=== PATIENT | female | born 1960 | race Caucasian/White ===

== ENCOUNTER 2020-02-08 15:57 | Emergency (ER) | payer OTHER ==
--- NOTE | 2020-02-08 16:03 | EDM.PDOC ---
ED HPI GENERAL MEDICAL PROBLEM - General Stated Complaint: NOT ABLE TO TO HAVE A BM Time Seen by Provider: 02/08/20 16:03 Source of Information: Reports: Patient History Limitations: Reports: No Limitations - History of Present Illness INITIAL COMMENTS - FREE TEXT/NARRATIVE: 59-year-old female with onset of left mid back, flank and left-sided abdominal pain at approximately midnight this morning, 02/08/2020. This was associated with vomiting/dry heaving. The pain has progressively worsened with time and she reports that it is a sharp and shooting pain to radiate from her back and into her left lower abdomen. She felt that she might be constipated and took Ex- Lax last night but had no results from that and then at 11:30 AM today did a saline enema with little results from that and no relief of her pain. In fact, she reports that her pain has worsened since then. She has had no fevers or chills. She has some dysuria and 4 days ago had urgency, frequency and dysuria and called her doctor to get a prescription of Macrobid ordered. She has been taking the Macrobid and she still has some feelings of dysuria now. No hematuria. She reports that she has had little oral intake and her urine output has been decreased. The pain is rated by her as an 8-9/10. It is better if she is at rest and much worse with walking and movement and palpation of the area. She has had no cough. No chest pain. No sore throat or nasal congestion. There are no other associated signs or symptoms. There are no other modifying factors. Onset: Today (Midnight on 02/08/2020.) Duration: Getting Worse Location: Reports: Abdomen, Back Quality: Reports: Sharp (And shooting) Severity: Severe Improves with: Reports: Rest Worsens with: Reports: Other (Palpation. Walking.), Movement Context: Reports: Other (As above) Associated Symptoms: Reports: No Other Symptoms (Except as above) Treatments BEAMER HAND: Reports: Other Medication(s) (As above) left abdomen Pain Score (Numeric/FACES): 8 - Related Data Allergies Allergy/AdvReac Type Severity Reaction Status Date / Time seasonal Allergy Rash Uncoded 02/08/20 16:17 Home Meds: Home Meds Estrogens, Conjugated [Premarin] 1.25 mg PO DAILY 02/08/20 [History] Fluticasone/Salmeterol [Advair 250-50 Diskus] 1 puff INH BID 02/08/20 [History] Gabapentin [Neurontin] 300 cap PO TID 02/08/20 [History] Nitrofurantoin [place]/Macrocryst [Nitrofurantoin [place]-MCR] 100 mg PO BID 02/08/20 [History] gemfibroziL [Gemfibrozil] 600 mg PO BID 02/08/20 [History] Past Medical History Cardiovascular History: Reports: Hypertension Respiratory History: Reports: Other (See Below) (History of ARDS status post pneumonia with prolonged hospitalization in the past) Neurological History: Reports: Neuropathy, Peripheral (With chronic pain and she is on medical marijuana for this.), Other (See Below) (Restless leg syndrome ) - Past Surgical History GI Surgical History: Reports: Cholecystectomy Female Surgical History: Reports: Section, Hysterectomy Musculoskeletal Surgical History: Reports: Knee Replacement (Right knee), Other (See Below) (Right knee ACL repair prior to the right knee replacement.) Social & Family History - Tobacco Use Smoking Status *Q: Unknown Ever Smoked (Nonsmoker) - Alcohol Use Alcohol Use History: Yes Alcohol Use Frequency: Monthly (1-2 times a month.) - Living Situation & Occupation Occupation: Employed (Recently began working at [employer].) ED ROS GENERAL - Review of Systems Review Of Systems: See Below Constitutional: Reports: No Symptoms HEENT: Reports: No Symptoms Respiratory: Reports: No Symptoms Cardiovascular: Reports: No Symptoms GI/Abdominal: Reports: Abdominal Pain (Left lower quadrant and left flank), Nausea : Reports: Dysuria, Flank Pain. Denies: Hematuria Musculoskeletal: Reports: Back Pain (Left mid back) Skin: Reports: No Symptoms Neurological: Reports: No Symptoms Hematologic/Lymphatic: Reports: No Symptoms Immunologic: Reports: No Symptoms ED EXAM, GI/ABD - Physical Exam Exam: See Below Exam Limited By: No Limitations General Appearance: Alert, Moderate Distress, Obese Eyes: Bilateral: Normal Appearance, EOMI Ears: Normal External Exam, Hearing Grossly Normal Nose: Normal Inspection, Normal Mucosa, No Blood Throat/Mouth: Normal Voice, No Airway Compromise, Other (Dry mucous membranes) Head: Atraumatic, Normocephalic Neck: Normal Inspection, Supple, Non-Tender, Full Range of Motion Respiratory/Chest: No Respiratory Distress, Lungs Clear, Normal Breath Sounds, No Accessory Muscle Use, Chest Non-Tender Cardiovascular: Normal Peripheral Pulses, Regular Rate, Rhythm, No Murmur GI/Abdominal Exam: Soft, No Mass, Tender (Over left mid and lower abdomen.), Abnormal Bowel Sounds (Bowel sounds appear to be somewhat diminished.) Back Exam: Normal Inspection, Full Range of Motion, CVA Tenderness (L) Extremities: Normal Inspection, Normal Range of Motion, Non-Tender, No Pedal Edema, Normal Capillary Refill Neurological: Alert, Oriented, CN II-XII Intact, Normal Cognition, No Motor/ Sensory Deficits Skin Exam: Warm, Dry, Intact, Normal Color, No Rash Course - Vital Signs Last Recorded V/S: Last Vital Signs Temp 36.7 C 02/08/20 16:06 Pulse 97 02/08/20 16:06 Resp 18 02/08/20 16:06 BP 172/69 H 02/08/20 16:06 Pulse Ox 99 02/08/20 16:06 - Orders/Labs/Meds Orders: Active Orders 24 hr Category Date Time Status NPO [Nothing Per Oral Diet] [DIET] Diet 02/09/20 Dinner Ordered Abdomen Pelvis wo Cont [CT] Stat Exams 02/08/20 16:21 Taken CULTURE BLOOD [BC] Urgent Lab 02/08/20 17:20 Received CULTURE BLOOD [BC] Urgent Lab 02/08/20 17:30 Received CULTURE URINE [RM] Stat Lab 02/08/20 16:50 Received Sodium Chloride 0.9% [Normal Saline] 1,000 ml Med 02/08/20 16:30 Active IV ASDIRECTED Sodium Chloride 0.9% [Saline Flush] Med 02/08/20 16:20 Active 10 ml FLUSH ASDIRECTED PRN Blood Culture x2 Reflex Set [OM.PC] Urgent Oth 02/08/20 17:11 Ordered Peripheral IV Insertion Adult [OM.PC] Routine Oth 02/08/20 16:20 Ordered Medication Orders Sodium Chloride (Normal Saline) 1,000 mls @ 150 mls/hr IV ASDIRECTED RUDY Sodium Chloride (Saline Flush) 10 ml FLUSH ASDIRECTED PRN PRN Reason: Keep Vein Open Labs: Laboratory Tests 02/08/20 02/08/20 02/08/20 Range/Units 16:35 16:35 16:35 WBC 16.6 H (4.5-12.0) X10-3/uL RBC 4.83 (3.23-5.20) x10(6)uL Hgb 13.6 (11.5-15.5) g/dL Hct 42.2 (30.0-51.3) % MCV 87.3 (80-96) fL MCH 28.1 (27.7-33.6) pg MCHC 32.2 (32.2-35.4) g/dL RDW 13.1 (11.5-15.5) % Plt Count 100 L (125-369) X10(3)uL MPV 7.8 (7.4-10.4) fL Neut % (Auto) 93.2 H (46-82) % Lymph % (Auto) 2.5 L (13-37) % [place] % (Auto) 2.4 L (4-12) % Eos % (Auto) 0 L (1.0-5.0) % Baso % (Auto) 2 (0-2) % Neut # (Auto) 15.5 H (1.6-8.3) # Lymph # (Auto) 0.4 L (0.6-5.0) # [place] # (Auto) 0.4 (0.0-1.3) # Eos # (Auto) 0.0 (0.0-0.8) # Baso # (Auto) 0.3 H (0.0-0.2) # Sodium 143 (135-145) mmol/L Potassium 3.6 (3.5-5.3) mmol/L Chloride 104 (100-110) mmol/L Carbon Dioxide 25 (21-32) mmol/L BUN 16 (7-18) mg/dL Creatinine 1.1 H (0.55-1.02) mg/dL Est Cr Clr Drug Dosing 44.09 mL/min Estimated GFR (MDRD) 51 L (>60) BUN/Creatinine Ratio 14.5 (9-20) Glucose 130 H (80-116) mg/dL Lactic Acid (0.4-2.0) mmol/L Calcium 8.4 L (8.6-10.2) mg/dL Total Bilirubin 0.4 (0.1-1.3) mg/dL AST 25 (5-25) IU/L ALT 20 (12-36) U/L Alkaline Phosphatase 76 (56-112) IU/L C-Reactive Protein (0.5-0.9) mg/dL Total Protein 7.1 (6.0-8.0) g/dL Albumin 3.1 L (3.5-5.2) g/dL Globulin 4.0 g/dL Albumin/Globulin Ratio 0.8 Lipase 86 (73-393) U/L Urine Color (YELLOW) Urine Appearance (CLEAR) Urine pH (5.0-6.5) Ur Specific [place] (1.010-1.025) Urine Protein (NEGATIVE) mg/dL Urine Glucose (UA) (NORMAL) mg/dL Urine Ketones (NEGATIVE) mg/dL Urine Occult Blood (NEGATIVE) Urine Nitrite (NEGATIVE) Urine Bilirubin (NEGATIVE) Urine Urobilinogen (NEGATIVE) mg/dL Ur Leukocyte Esterase (NEGATIVE) Urine RBC (0-5) Urine WBC (0-5) Ur Squamous Epith Cells (NS,R,O) Urine Bacteria (NS) 02/08/20 02/08/20 02/08/20 Range/Units 16:35 16:45 17:20 WBC (4.5-12.0) X10-3/uL RBC (3.23-5.20) x10(6)uL Hgb (11.5-15.5) g/dL Hct (30.0-51.3) % MCV (80-96) fL MCH (27.7-33.6) pg MCHC (32.2-35.4) g/dL RDW (11.5-15.5) % Plt Count (125-369) X10(3)uL MPV (7.4-10.4) fL Neut % (Auto) (46-82) % Lymph % (Auto) (13-37) % [place] % (Auto) (4-12) % Eos % (Auto) (1.0-5.0) % Baso % (Auto) (0-2) % Neut # (Auto) (1.6-8.3) # Lymph # (Auto) (0.6-5.0) # [place] # (Auto) (0.0-1.3) # Eos # (Auto) (0.0-0.8) # Baso # (Auto) (0.0-0.2) # Sodium (135-145) mmol/L Potassium (3.5-5.3) mmol/L Chloride (100-110) mmol/L Carbon Dioxide (21-32) mmol/L BUN (7-18) mg/dL Creatinine (0.55-1.02) mg/dL Est Cr Clr Drug Dosing mL/min Estimated GFR (MDRD) (>60) BUN/Creatinine Ratio (9-20) Glucose (80-116) mg/dL Lactic Acid 3.1 H* (0.4-2.0) mmol/L Calcium (8.6-10.2) mg/dL Total Bilirubin (0.1-1.3) mg/dL AST (5-25) IU/L ALT (12-36) U/L Alkaline Phosphatase (56-112) IU/L C-Reactive Protein 2.3 H (0.5-0.9) mg/dL Total Protein (6.0-8.0) g/dL Albumin (3.5-5.2) g/dL Globulin g/dL Albumin/Globulin Ratio Lipase (73-393) U/L Urine Color Yellow (YELLOW) Urine Appearance Slightly cloudy (CLEAR) Urine pH 6.0 (5.0-6.5) Ur Specific [place] 1.010 (1.010-1.025) Urine Protein 30 H (NEGATIVE) mg/dL Urine Glucose (UA) Normal (NORMAL) mg/dL Urine Ketones 50 H (NEGATIVE) mg/dL Urine Occult Blood Large H (NEGATIVE) Urine Nitrite Positive H (NEGATIVE) Urine Bilirubin Small H (NEGATIVE) Urine Urobilinogen Normal (NEGATIVE) mg/dL Ur Leukocyte Esterase Moderate H (NEGATIVE) Urine RBC 5-10 H (0-5) Urine WBC 20-30 H (0-5) Ur Squamous Epith Cells Moderate H (NS,R,O) Urine Bacteria Many H (NS) Meds: Medications Generic Name Dose Route Start Last Admin Trade Name Freq PRN Reason Stop Dose Admin Sodium Chloride 1,000 mls @ 150 mls/hr 02/08/20 16:30 Normal Saline IV ASDIRECTED RUDY Sodium Chloride 10 ml 02/08/20 16:20 Saline Flush FLUSH ASDIRECTED PRN Keep Vein Open Discontinued Medications Generic Name Dose Route Start Last Admin Trade Name Freq PRN Reason Stop Dose Admin Ceftriaxone Sodium 2 gm 02/08/20 17:12 02/08/20 17:20 Rocephin IVPUSH 02/08/20 17:13 2 gm ONETIME ONE Administration Hydromorphone HCl 0.5 mg 02/08/20 16:22 02/08/20 16:32 Dilaudid IVPUSH 02/08/20 16:23 0.5 mg ONETIME ONE Administration Hydromorphone HCl 1 mg 02/08/20 17:37 02/08/20 17:44 Dilaudid IVPUSH 02/08/20 17:38 1 mg ONETIME ONE Administration Sodium Chloride 1,000 mls @ 999 mls/hr 02/08/20 16:22 02/08/20 16:33 Normal Saline IV 02/08/20 17:22 999 mls/hr .BOLUS ONE Administration Ondansetron HCl 4 mg 02/08/20 16:22 02/08/20 16:32 Zofran IVPUSH 02/08/20 16:23 4 mg ONETIME ONE Administration - Radiology Interpretation Free Text/Narrative:: CT scan of abdomen and pelvis without IV contrast shows most likely due to adjacent obstructing stones in the left proximal ureter that are 4-5 mm in and 9 -10 mm in length and are associated with left nephromegaly and with stranding and hydronephrosis. This was per the radiologist. - Re-Assessments/Exams Free Text/Narrative Re-Assessment/Exam: 02/08/20 17:15: Patient has received Dilaudid for pain with decrease in her pain to a 5-6/10 at this point. Her white blood cell count is 16.6. Her BUN was 16 and her creatinine was 1.1. Her CRP was 2.3. She has remained vitally stable. The CT scan of her abdomen and pelvis shows an obstructing proximal left ureteral stone. With her obstructing stone that is 5 x 10 mm or 2 obstructing stones one on top of the other and with the infected urine, she will need urologic specially services which are not available at [facility]. Therefore, she would need transfer to a facility with these specially services available. I discussed this with the patient and wanted me to discuss her case with the doctors at [facility]. In the meantime, I have sent the urine for a culture. I have ordered blood cultures 2 sets and the patient will continue to get IV fluid hydration and I will order Rocephin 2 g IV to be given. 02/08/20 17:23: I discussed the patient's case with Dr. Bruno, ED physician at [facility], and he has agreed to accept the patient in transfer. The patient will be transferred via ambulance to [facility] for definitive management and admission. The patient is in agreement with this plan. 02/08/20 18:04: Lactic acid was 3.1. He remains vitally stable. The ambulance crew is here and ready to transport the patient. I will have them give her another liter bolus of normal saline. I will also call [facility] and pass this information on to the accepting physician. Departure - Departure Time of Disposition: 18:07 Disposition: DC/Tfer to Acute Hospital 02 Condition: Fair (Stable) Clinical Impression: Left ureteral calculus, Hydronephrosis with renal and ureteral calculous obstruction UTI (urinary tract infection) Qualifiers: Urinary tract infection type: acute pyelonephritis Qualified Code(s): N10 - Acute pyelonephritis - Discharge Information Referrals: Greer Aly, [employer] [Primary Care Provider] - Sepsis Event Note - Focused Exam Vital Signs: Vital Signs Temp Pulse Resp BP Pulse Ox 02/08/20 16:06 36.7 C 97 18 172/69 H 99 Date Exam was Performed: 02/08/20 Time Exam was Performed: 18:04 - My Orders Last 24 Hours: My Active Orders 02/08/20 16:20 Sodium Chloride 0.9% [Saline Flush] 10 ml FLUSH ASDIRECTED PRN Peripheral IV Insertion Adult [OM.PC] Routine 02/08/20 16:21 Abdomen Pelvis wo Cont [CT] Stat 02/08/20 16:30 Sodium Chloride 0.9% [Normal Saline] 1,000 ml IV ASDIRECTED 02/08/20 16:50 CULTURE URINE [RM] Stat 02/08/20 17:11 Blood Culture x2 Reflex Set [OM.PC] Urgent 02/08/20 17:20 CULTURE BLOOD [BC] Urgent 02/08/20 17:30 CULTURE BLOOD [BC] Urgent 02/09/20 Dinner NPO [Nothing Per Oral Diet] [DIET] - Assessment/Plan Last 24 Hours: My Active Orders 02/08/20 16:20 Sodium Chloride 0.9% [Saline Flush] 10 ml FLUSH ASDIRECTED PRN Peripheral IV Insertion Adult [OM.PC] Routine 02/08/20 16:21 Abdomen Pelvis wo Cont [CT] Stat 02/08/20 16:30 Sodium Chloride 0.9% [Normal Saline] 1,000 ml IV ASDIRECTED 02/08/20 16:50 CULTURE URINE [RM] Stat 02/08/20 17:11 Blood Culture x2 Reflex Set [OM.PC] Urgent 02/08/20 17:20 CULTURE BLOOD [BC] Urgent 02/08/20 17:30 CULTURE BLOOD [BC] Urgent 02/09/20 Dinner NPO [Nothing Per Oral Diet] [DIET]
[2020-02-08] MEDS ORDERED: Sodium Chloride 0.9% 10 ML Syringe FLUSH PRN (16:20)
[2020-02-08] MEDS ORDERED: Sodium Chloride 0.9% 1,000 ML IV ONE (16:22)
[2020-02-08] MEDS ORDERED: Ondansetron 4 MG/2 ML SDV IVPUSH ONE (16:22)
[2020-02-08] MEDS ORDERED: HYDROmorphone 2 MG/ML SDV IVPUSH ONE ×2 (16:22→17:37)
[2020-02-08] MEDS ORDERED: Sodium Chloride 0.9% 1,000 ML IV SCH (16:30)
[2020-02-08] MEDS ORDERED: cefTRIAXone 2 GM Vial IVPUSH ONE (17:12)
== END 2020-02-08 18:10 ==
LOC: FB.ED 15:57
DX: N13.2 Hydronephrosis with renal and ureteral calculous obstruction (principal); N10 Acute pyelonephritis; I10 Essential (primary) hypertension; Z91.048 Other nonmedicinal substance allergy status; Z79.899 Other long term (current) drug therapy
CPT/HCPCS: 36415; 74176; 80053; 81001; 83605; 83690; 85025; 86140; 87040; 87077; 87086; 87088; 87186; 96361; 96374; 96375; 96376; 99285; J0696; J1170; J2405; J7030